=== PATIENT | female | born 1990 | race Caucasian/White ===

== ENCOUNTER 2019-02-17 12:06 | Outpatient (CLI) | payer OTHER ==
--- NOTE | 2019-02-17 16:09 | TRIAGE ---
OB Triage Datetime Report Generated by CPN: 02/17/2019 16:09 Datetime: 02/17/2019 15:48 Stage of : OB Triage Datetime: 02/17/2019 15:06 Labor Evaluation Frequency: 0 Monitor Mode: External Pattern: Normal: <= 5 Contractions in 10 Minutes Resting Tone [place]: Relaxed Comments: removed due to gestational age Pain Assessment Pain Scale: 2 Pain Presence: Intermittent Pain Type: Cramping Pain Location: Abdomen Pain Goal: 3 Pain Relief Measures: Comfort Measures Pain Assessment Comments: pt states pains are sporadic Datetime: 02/17/2019 14:09 Labor Evaluation Frequency: 0 Monitor Mode: External Pattern: Normal: <= 5 Contractions in 10 Minutes Resting Tone [place]: Relaxed Comments: removed due to gestational age Pain Assessment Pain Scale: 2 Pain Presence: Intermittent Pain Type: Cramping Pain Location: Abdomen Pain Goal: 3 Pain Relief Measures: Comfort Measures Datetime: 02/17/2019 13:16 Stage of : OB Triage Datetime: 02/17/2019 13:00 Stage of : OB Triage Assessment Type: Triage EGA: 20.2 Maternal Assessment Level of Consciousness: Fully Conscious DTR's/Clonus: DTRs 2+; No Clonus Headache: Denies Blurred Vision: No Respiratory Effort: Unlabored; Regular Rhythm; Equal Expansion Breath Sounds, Left: Clear and Equal Breath Sounds, Right: Clear and Equal Nausea/Vomiting: Denies RUQ Epigastric Pain: Denies Facial Edema: None Temperature Route: Axillary Fall Risk Assessment History of Falling: (0) No Secondary Diagnosis: (0) No Ambulatory Aid: (0) Bedrest/Nurse Assist IV Therapy: (0) No Gait: (0) Normal/Bedrest/Immobile Mental Status: (0) Oriented to Own Ability Fall Score: 0 Fall Risk Score Definition: No Risk: No action required Labor Evaluation Frequency: 0 Monitor Mode: External Pattern: Normal: <= 5 Contractions in 10 Minutes Resting Tone [place]: Relaxed Heart Rate FHR Baseline Rate: 135 (Annotations: X 1 MIN, REMOVED DUE TO GESTATIONAL AGE) Monitor Mode: External US Pain Assessment Pain Scale: 2 Pain Presence: Intermittent Pain Type: Cramping Pain Location: Abdomen; Perineum Pain Goal: 3 Pain Relief Measures: Comfort Measures Datetime: 02/17/2019 12:58 Time of Arrival: 01/27/2019 12:30 Arrived By: Ambulatory Chief Complaint: C/O CRAMPING SPORADICALLY LAST COUPLE OF WEEKS THAT HAS GOTTEN WORSE TODAY, DENIES BLEEDING, POSSIBLE LEAKING Movement: Present Contractions: Occasional Rupture of Membranes: Unsure Vaginal Discharge: Denies Recent Sexual Intercouse: Denies Abdominal Trauma: Not Applicable Time Provider Notified: 02/17/2019 13:16 Provider Notified: [email or web address] Initial Plan: TOCO, FHT, ROM PLUS
--- NOTE | 2019-02-17 16:44 | PN ---
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 pulled me out of near end out of surgery prior to finish the surgery Objective Heart Rate: 130's Heart Rate Comments CAT I tracing no UC's Contractions: None Exam ROM plus neg Results/Medications Result Diagram: 02/17/19 1401 Results 24 hrs Laboratory Tests Test 02/17/19 13:05 02/17/19 14:00 02/17/19 14:01 Urine Color STRAW Urine Clarity CLEAR Urine pH 7.0 Urine Specific [place] 1.009 Urine Ketones TRACE A Urine Nitrite NEGATIVE Urine Bilirubin NEGATIVE Urine Urobilinogen NEGATIVE Urine Leukocyte Esterase NEGATIVE Urine Hemoglobin NEGATIVE Urine Glucose NEGATIVE Urine Total Protein NEGATIVE Membranes Rupture NEGATIVE White Blood Count 11.0 H Red Blood Count 3.55 L Hemoglobin 11.0 L Hematocrit 32.2 L Mean Corpuscular Volume 90.7 Mean Corpuscular Hemoglobin 31.0 Mean Corpuscular Hemoglobin Concent 34.2 Red Cell Distribution Width 12.9 Platelet Count 312 Mean Platelet Volume 9.2 Immature Granulocytes % 0.600 H Neutrophils % 72.6 Lymphocytes % 20.5 Monocytes % 5.2 Eosinophils % 0.6 Basophils % 0.5 Nucleated Red Blood Cells % 0.0 Immature Granulocytes # 0.070 H Neutrophils # 8.0 H Lymphocytes # 2.3 Monocytes # 0.6 Eosinophils # 0.1 Basophils # 0.1 Nucleated Red Blood Cells # 0.0 Imaging Results CVL 6.1 EFW 600gmAFI MVP 6.7 Disposition: Discharge Assessment/Plan A IUP 23w2d lower abdominal cramping pain resolved P discharge home RTH prKG Jo MD Feb 17, 2019 16:44
== END 2019-02-17 16:04 | disposition home or self-care (01) ==
LOC: OBT 12:06 → L-D 12:06 → OBT 16:04
PROVIDERS: ATTEND Obstetrics & Gynecology
DX: O26.892 Other specified pregnancy related conditions, second trimester (principal); Z3A.23 23 weeks gestation of pregnancy; R10.2 Pelvic and perineal pain
CPT/HCPCS: 76815; 76817; 81003; 84112; 85025; 87086; G0463